=== PATIENT | male | born 1945 | race Caucasian/White ===

== ENCOUNTER → 2017-05-04 | Outpatient (CLI) | payer OTHER ==
[~2017-05-04] MED LIST: ASPIR 8181 MG PO; CLOBEX59 M1; COLCRYS0.6 MG PO; IBUPROFEN 400400 M2 PO; IBUPROFEN 600600 M1; KEFLEX500 MG PO; NAPROSYN500 MG PO; OMEPRAZOLE40 MG PO; STELARA45 MG/0.1 SUBQ; TUMS PO; ULTRAM 50MG TAB50 MG PO; ZOFRAN ODT4 MG PO
== END ==
LOC: RAD 15:29
DX: L40.0 Psoriasis vulgaris (principal); Z79.899 Other long term (current) drug therapy

== ENCOUNTER → 2018-08-05 | Outpatient (CLI) | payer OTHER | LOC: RAD 09:27 | DX: L40.0 Psoriasis vulgaris (principal); Z79.899 Other long term (current) drug therapy ==

== ENCOUNTER → 2020-03-28 | Outpatient (CLI) | payer OTHER | LOC: RAD 12:05 | PROVIDERS: ATTEND Physician Assistant | DX: L40.0 Psoriasis vulgaris (principal); Z79.899 Other long term (current) drug therapy ==